=== PATIENT | female | born 1995 ===

== ENCOUNTER 2018-11-13 09:46 | Emergency (ER) | payer MEDICAID ==
[~2018-11-13] VITALS: Ht 160 cm; Wt 55.8 kg
[2018-11-13 10:15] VITALS: BP 111/79
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
[2018-11-13] MEDS ORDERED: Acetaminophen 500mg (ES) tab ORAL ONE (10:30)
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
--- NOTE | 2018-11-13 10:38 | NUR ---
ED Nurse Note: word processor technician by bed side
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
[2018-11-13] MEDS ORDERED: IBUPROFEN600 MG ORAL (11:19)
[2018-11-13 11:23] VITALS: BP 136/67
--- NOTE | 2018-11-13 11:24 | NUR ---
ER DISCHARGE NOTE: Patient is cleared to be discharged per ERMD, pt is aox4, on room air, with stable vital signs. pt was given dc and prescription instructions, pt was able to verbalize understanding, pt id band removed. pt is able to ambulate with steady gait. pt took all belongings.
== END 2018-11-13 11:24 | disposition home or self-care (01) ==
LOC: EMR 10:10
DX: S60.221A Contusion of right hand, initial encounter (principal); Y04.2XXA Assault by strike against or bumped into by another person, initial encounter; Y92.9 Unspecified place or not applicable
CPT/HCPCS: 99283

== ENCOUNTER 2020-03-02 15:27 | Emergency (ER) | payer MEDICAID, OTHER ==
[~2020-03-02] VITALS: Ht 160 cm; Wt 61.7 kg
[~2020-03-02 15:27] MED LIST: IBUPROFEN600 MG ORAL
--- NOTE | 2020-03-02 16:05 | NUR ---
ED Nurse Note: 20 g IV started in left forearm, blood collected and sent to lab.
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
--- NOTE | 2020-03-02 16:10 | NUR ---
ED Nurse Note: Patient walked into ED from home c/o n/v, headache, and fatigue x 3 days. Patient states she has not been eating for 3 days. Denies recent travel. Patient AxO x 4, on the alarm security or surveillance monitor.
[2020-03-02 16:21] LABS: BASOPHILS % (AUTO) 1.1 % (0.0-2.0); EOSINOPHILS % (AUTO) 1.5 % (0.0-3.0); HEMATOCRIT 36.8 % (37.0-47.0); HEMOGLOBIN 11.6 G/DL (12.0-16.0); LYMPHOCYTES % (AUTO) 33.1 % (20.0-45.0); MEAN CORPUSCULAR VOLUME 80 FL (80-99); MONOCYTES % (AUTO) 5.2 % (1.0-10.0); NEUTROPHILS % (AUTO) 59.1 % (45.0-75.0); PLATELET COUNT 198 K/UL (150-450); RED BLOOD COUNT 4.63 M/UL (4.20-5.40); RED CELL DISTRIBUTION WIDTH 14.4 % (11.6-14.8); WHITE BLOOD COUNT 5.2 K/UL (4.8-10.8)
[2020-03-02 16:24] VITALS: BP 110/79
[2020-03-02 16:30] LABS: ANION GAP 9 mmol/L (5-15); BLOOD UREA NITROGEN < 1 mg/dL (7-18); CARBON DIOXIDE 27 MMOL/L (21-32); CHLORIDE 103 MMOL/L (98-107); CREATININE 0.6 MG/DL (0.55-1.30); POTASSIUM 3.9 MMOL/L (3.5-5.1); SODIUM 139 MMOL/L (136-145)
[2020-03-02 16:34] LABS: ALANINE AMINOTRANSFERASE 11 U/L (12-78); ALBUMIN 4.3 G/DL (3.4-5.0); ALBUMIN/GLOBULIN RATIO 1.1 (1.0-2.7); ALKALINE PHOSPHATASE 70 U/L (46-116); ASPARTATE AMINO TRANSFERASE 28 U/L (15-37); BILIRUBIN,TOTAL 0.4 MG/DL (0.2-1.0)
--- NOTE | 2020-03-02 16:50 | NUR ---
ED Nurse Note: Patient resting in bed, no s/s of acute distress. Patient stating she cannot urinate at the moment. Refusing straight cath, will check with patient again.
--- NOTE | 2020-03-02 17:10 | NUR ---
ED Nurse Note: Urine sample collected and sent to lab.
[2020-03-02 17:22] LABS: APPEARANCE,URINE CLEAR; BILIRUBIN, URINE NEGATIVE (NEGATIVE); COLOR,URINE PALE YELLOW; GLUCOSE, URINE (UA) NEGATIVE (NEGATIVE); KETONES,URINE NEGATIVE (NEGATIVE); LEUKOCYTE ESTERASE ,URINE NEGATIVE (NEGATIVE); NITRITE,URINE NEGATIVE (NEGATIVE); PH,URINE 8 (4.5-8.0); PROTEIN,URINE NEGATIVE (NEGATIVE); UROBILINOGEN,URINE NORMAL MG/DL (0.0-1.0)
--- NOTE | 2020-03-02 17:50 | NUR ---
ED Nurse Note: Kimmie JACOBS at bedside.
[2020-03-02] MEDS ORDERED: FAMOTIDINE20 MG ORAL (17:53)
[2020-03-02] MEDS ORDERED: ONDANSETRON ODT4 MG BC (17:53)
[2020-03-02 18:20] VITALS: BP 110/79
--- NOTE | 2020-03-02 18:20 | NUR ---
ED Nurse Note: Pt cleared by health care Provider for discharge. DC instructions/prescription was given and explained to pt and verbalized understanding of teachings. All medical deviecs such as ID band removed. Pt is AAO x4, ambulatory and left with all personal belongings.
== END 2020-03-02 18:20 | disposition home or self-care (01) ==
LOC: EMR 17:30
DX: R11.2 Nausea with vomiting, unspecified (principal); E86.0 Dehydration; R10.9 Unspecified abdominal pain; R51 Headache
CPT/HCPCS: 36415; 80053; 80307; 81003; 81025; 83690; 85025; 96360; Z7502; 99284